=== PATIENT | male | born 1950 | race Caucasian/White ===

== ENCOUNTER → 2016-10-27 | Outpatient (CLI) | payer MEDICARE, BC ==
[~2016-10-27] MED LIST: ASPIRIN81 M2 PO; BRILINTA90 MG PO; CARVEDILOL3.125 MG PO; CLOPIDOGREL75 MG PO; COREG3.125 MG PO; FLUOXETINE HCL40 M1 PO; GABAPENTIN300 M2 PO; GABAPENTIN300 MG PO; IMDUR-ER30 MG PO; LIPITOR PO; LIPITOR40 MG PO; NITROGLYCERIN0.4 MG SL; NITROGLYGERIN0.4 MG SL; OLANZAPINE10 MG PO; OMEPRAZOLE MAGN20 MG PO; PROZAC40 M1 PO; WELLBUTRIN SR150 M1 PO; WELLBUTRIN SR150 MG PO; WELLBUTRIN XL150 M1 PO; ZIAGEN300 M1
[2016-10-27 12:29] LABS: BUN/CREATININE RATIO 14.16; CALCIUM SERUM 9.2 mg/dL (8.4-10.2); CREATININE SERUM 1.2 mg/dL (0.6-1.4); GLOM FILT RATE Estimated 62.7 mL/min (>60); POTASSIUM 4.3 mmol/L (3.5-5.1)
== END | disposition home or self-care (01) ==
LOC: CLAB 11:41
PROVIDERS: Internal Medicine Cardiovascular Disease
DX: R60.9 Edema, unspecified (principal)
CPT/HCPCS: 36415; 80048